=== PATIENT | female | born 1970 | race Caucasian/White ===

== ENCOUNTER 2021-02-24 13:47 | Emergency (ER) | payer OTHER ==
[~2021-02-24] VITALS: Ht 162.6 cm; Wt 99.8 kg
[2021-02-24 13:54] VITALS: BP 131/77
[2021-02-24] MEDS ORDERED: IBUPROFEN 800 MG TAB PO ONE (15:45)
== END 2021-02-24 16:07 | disposition home or self-care (01) ==
LOC: ER 13:47
DX: S52.125A Nondisplaced fracture of head of left radius, initial encounter for closed fracture (principal); W01.0XXA Fall on same level from slipping, tripping and stumbling without subsequent striking against object, initial encounter; Y93.89 Activity, other specified; Y92.89 Other specified places as the place of occurrence of the external cause; Y99.8 Other external cause status
CPT/HCPCS: 29105; 73070; 73100

== ENCOUNTER 2024-11-24 05:20 | Inpatient (IN) | payer OTHER ==
[~2024-11-24] VITALS: Ht 160 cm; Wt 106.7 kg
[2024-11-24 05:45] VITALS: PULSE 65; RESP 12; O2SAT 96
--- NOTE | 2024-11-24 06:52 | ED.PDOC ---
Musculoskeletal HPI Comments This is a 54 year old female JAMIL presenting to the ED with chief complaint of left hip injury s/p fall. Patient reports that while at work this morning, she had accidentally tripped over a concrete curb, causing her to fall onto her left hip. Patient relays that she is now unable to move her left hip with associated pain. Patient states that she had a previous left hip replacement done some time ago. Patient denies any numbness, weakness, tingling, back pain, head injury, or leg pain. Chief Complaint: Fall Injury Time Seen by MD: 06:50 Primary Care Provider: NIK Reviewed Notes: Nurses Notes, Medications, Allergies Allergies: Coded Allergies: Sulfamethoxazole w/Trimethoprim (Verified Allergy, Unknown, 11/24/24) Information Source: Patient Mode of Arrival: EMS Location: Left Extremity Location: Hip Timing: Hours Prehospital treatment: None Severity: Moderate Able to Move Extremity: No Bear Weight: No Pain: Moderate Mechanism: Spontaneous Circumstances: Fall Onset of Symptoms: After Trauma Symptoms: Pain DVT Risk Factors: NONE Last Tetanus: Unknown History of: Hip Operation Associated signs and symptoms: Hip pain Past Medical History PAST MEDICAL HISTORY: Denies Surgical History (Other): Left hip replacement ASSESSOR History: Denies all ASSESSOR Hx Family History Family History: Reviewed,noncontributory to illness Social History Smoker: Non-Smoker Alcohol: Denies ETOH Use Drugs: Denies Drug Use Lives In: Home Constitutional: denies: chills, diaphoresis, fatigue, fever, malaise, sweats, weakness, others EENTM: denies: blurred vision, double vision, ear bleeding, ear discharge, ear drainage, ear pain, ear ringing, eye pain, eye redness, hearing loss, mouth pain, mouth swelling, nasal discharge, nose bleeding, nose congestion, nose pain, photophobia, tearing, throat pain, throat swelling, voice changes, others Respiratory: denies: cough, hemoptysis, orthopnea, SOB at rest, shortness of breath, SOB with excertion, stridor, wheezing, others Cardiovascular: denies: chest pain, dizzy spells, diaphoresis, Dyspnea on exertion, edema, irregular heart beat, left arm pain, lightheadedness, palpitations, PND, syncope, others Gastrointestinal: denies: abdomen distended, abdominal pain, blood streaked bowels, constipated, diarrhea, dysphagia, difficulty swallowing, hematemesis, melena, nausea, poor appetite, poor fluid intake, rectal bleeding, rectal pain, vomiting, others Genitourinary: denies: abnormal vagina bleeding, burning, dyspareunia, dysuria, flank pain, frequency, hematuria, incontinence, pain, , vagina discharge , urgency, others Neurological: denies: dizziness, fainting, headache, left sided numbness, left sided weakness, numbness, paresthesia, pre-existing deficit, right sided numbness, right sided weakness, seizure, speech problems, tingling, tremors, weakness, others Musculoskeletal: reports: others (Left hip pain and no ROM); denies: back pain, gout, joint pain, joint swelling, muscle pain, muscle stiffness, neck pain Integumetry: denies: bruises, change in color, change in hair/nails, dryness, laceration, lesions, lumps, rash, wounds, others Allergic/Immunocompromised: denies: Difficulty Healing, Frequent Infections, Hives, Itching, others Hematologic/Lymphatic: denies: anemia, blood clots, easy bleeding, easy bruising, swollen glands, others Endocrine: denies: excessive hunger, excessive sweating, excessive thirst, excessive urination, flushing, intolerance to cold, intolerance to heat, unexplained weight gain, unexplained weight loss, others Psychiatric: denies: anxiety, bipolar disorder, depression, hopeless, panic disorder, schizophrenia, sleepless, suicidal, others All Other Systems: Reviewed and Negative Physical Exam General Appearance: No Apparent Distress, Normal HEENT: Normal ENT Inspection, Pharynx Normal, TMs Normal Neck: Full Range of Motion, Non-Tender, Normal, Normal Inspection Respiratory: Chest Non-Tender, Lungs Clear, No Accessory Muscle Use, No Respiratory Distress, Normal Breath Sounds Cardiovascular: No Edema, No JVD, No Murmur, No Gallop, Normal Peripheral Pulses, Regular Rate/Rhythm Breast Exam: Deferred Gastrointestinal: No Organomegaly, Non Tender, No Pulsatile Mass, Normal Bowel Sounds, Soft Genitalia: Deferred Pelvic: Deferred Rectal: Deferred Extremities: No calf tenderness, Normal capillary refill, Normal inspection, Normal range of motion, Non-tender, No pedal edema Musculoskeletal : Location: Left Extremity Location: Hip Apperance: Tenderness: Moderate, Other (No ROM to left hip) Neurologic: Alert, baseball sewer hand II-XII nml as Tested, No Motor Deficits, Normal Affect, Normal Mood, No Sensory Deficits Cerebellar Function: Normal Reflexes: Normal Skin: Dry, Normal Color, Warm Lymphatic: No Adenopathy Was a procedure done? Was a procedure done?: No Differential Diagnosis EXT Differential Diagnosis: Fracture, Sprain, Dislocation, Contusion, Strain X-Ray, Labs, Meds, VS Vital Signs Date Time Temp Pulse Resp B/P (MAP) Pulse Ox O2 Delivery O2 Flow Rate FiO2 11/24/24 08:26 56 12 153/66 11/24/24 07:40 98.8 56 12 153/66 (95) 98 98.8 11/24/24 07:40 56 12 98 Room Air* 0 21 11/24/24 05:45 65 12 158/77 (104) 96 11/24/24 05:45 65 12 96 Room Air* 0 21 11/24/24 05:31 98.3 80 18 138/64 (88) 98 98.3 Lab Test 11/24/24 08:03 Range/Units White Blood Count 7.3 4.4-10.8 10^3/uL Red Blood Count 5.05 4.0-5.20 10^6/uL Hemoglobin 14.5 12.2-16.2 g/dL Hematocrit 42.3 36.0-46.0 % Mean Corpuscular Volume 83.7 80.0-100.0 fL Mean Corpuscular Hemoglobin 28.8 28.0-32.0 pg Mean Corpuscular Hemoglobin Concent 34.4 32.0-36.0 g/dL Red Cell Distribution Width 13.1 11.8-14.3 % Platelet Count 249 140-450 10^3/uL Mean Platelet Volume 7.1 6.9-10.8 fL Neutrophils (%) (Auto) 73.7 37.0-80.0 % Lymphocytes (%) (Auto) 17.8 10.0-50.0 % Monocytes (%) (Auto) 5.2 0.0-12.0 % Eosinophils (%) (Auto) 2.9 0.0-7.0 % Basophils (%) (Auto) 0.4 0.0-2.0 % Neutrophils # (Auto) 5.4 1.6-8.6 10 ^3/uL Lymphocytes # (Auto) 1.3 0.4-5.4 10 ^3/uL Monocytes # (Auto) 0.4 0-1.3 10 ^3/uL Eosinophils # (Auto) 0.2 0-0.8 10 ^3/uL Basophils # (Auto) 0 0-0.2 10 ^3/uL Nucleated Red Blood Cells 0.0 % Sodium Level 142 136-145 mmol/L Potassium Level 3.8 3.5-5.1 mmol/L Chloride Level 110 H 98-107 mmol/L Carbon Dioxide Level 27 20-31 mmol/L Anion Gap 5 5-15 Blood Urea Nitrogen 15 9-23 mg/dL Creatinine 0.76 0.550-1.02 mg/dL Glomerular Filtration Rate Calc 93 >90 mL/min BUN/Creatinine Ratio 19.7 10.0-20.0 Serum Glucose 101 74-106 mg/dL Calcium Level 9.7 8.7-10.4 mg/dL Current Medications Medications (Trade) Dose Ordered Sig/Sandra Route Start Time Stop Time Status Last Admin Morphine Sulfate 4 mg ONCE ONCE IV 11/24/24 06:45 11/24/24 06:46 DC 11/24/24 08:26 Sodium Chloride 1,000 ml @ 1,000 mls/hr Q1H ONCE IV 11/24/24 06:45 11/24/24 07:44 DC 11/24/24 07:05 Ondansetron HCl (Zofran) 4 mg ONCE ONCE IV 11/24/24 06:45 11/24/24 06:46 DC 11/24/24 07:38 Time of 1ST Reevaluation: 07:49 Reevaluation 1ST: Unchanged Patient Education/Counseling: Diagnosis, Treatment Family Education/Counseling: Diagnosis, Treatment Additional Information Previous visits reviewed: N/A The following tests were ordered, and results were reviewed by me: Lt hip XR Additional Information was gathered from interviewing the following independent historians: N/A I reviewed and agreed with the following test results read by other providers: Lt hip XR I discussed treatment and results with medical personnel and: patient and Comprehensive systems review obtained and negative except for what is stated in the HPI. Departure 1 Departure Time of Disposition: 09:18 (Patient with severe left hip pain after a fall. Patient with a history of a left hip replacement. Discussed with the Orthopedics who recommended admission for pain management and further evaluation as well as a CT left hip.) Impression: Primary Impression: Left hip pain Additional Impressions: Unable to ambulate Status post total hip replacement, left Disposition: 09 ADMITTED INPATIENT Admit to: Med Surg Condition: Serious Critical Care Note Critical Care Time?: Yes Critical care comment: Intractable hip pain Authorized and Performed by: Rosie Celeste MD Total critical care time: Approximately 38 minutes Due to a high probability of clinically significant, life threatening deteriorat ion, the patient required my highest level of preparedness to intervene emergently and I personally spent this critical care time directly and personally managing the patient. This critical care time included obtaining a history; examining the patient; pulse oximetry; ordering and review of studies; arranging urgent treatment with development of a management plan; evaluation of patient's response to treatment; frequent reassessment; and, discussions with other providers. This critical care time was performed to assess and manage the high probability of imminent, life-threatening deterioration that could result in multi-organ failure. It was exclusive of separately billable procedures and treating other patients and teaching time. Please see my other sections and the rest of the note for further information on patient assessment and treatment. Stability Stability form required: No Heart Score Heart Score: Heart Score Response (Comments) Value History N/A 0 EKG N/A 0 Age N/A 0 Risk Factors N/A 0 Troponin N/A 0 Total 0 I personally scribed for ROSIE CELESTE MD ([email or web address]) on 11/24/24 at 06:52. Electronically submitted by Ki Cage ([email or web address]). ROSIE CELESTE MD Nov 24, 2024 06:52
[2024-11-24] MEDS: SODIUM CHLORIDE 0.9% 1,000 ML IV ONE (07:05)
--- NOTE | 2024-11-24 07:33 | DVH ---
PROCEDURE: Left hip radiographs. INDICATION: Left hip injury TECHNIQUE: Frontal and lateral views of the left hip were obtained. COMPARISON: None FINDINGS: There is left total hip replacement. Hardware is intact. Alignment is maintained. No acute fracture or dislocation. IMPRESSION: 1. Left hip prosthesis. No acute osseous abnormality, hardware compromise or abnormal alignment.
[2024-11-24] MEDS: ONDANSETRON HCL 4 MG/2 ML VIAL IV ONE (07:38)
[2024-11-24 07:40] VITALS: PULSE 56; RESP 12; O2SAT 98
[2024-11-24 08:17] LABS: Hematocrit 42.3 % (36.0-46.0); Hemoglobin 14.5 g/dL (12.2-16.2); Mean Corpuscular Hemoglobin 28.8 pg (28.0-32.0); Mean Corpuscular Volume 83.7 fL (80.0-100.0); Nucleated Red Blood Cells % 0.0 %
[2024-11-24 08:26] LABS: Potassium 3.8 mmol/L (3.5-5.1); Sodium 142 mmol/L (136-145)
[2024-11-24] MEDS: MORPHINE SULFATE 4 MG/ML SYR/VIAL IV ONE (08:26)
[2024-11-24 08:27] LABS: Anion Gap 5 (5-15); Calcium 9.7 mg/dL (8.7-10.4); Carbon Dioxide 27 mmol/L (20-31)
[2024-11-24 08:31] LABS: Chloride 110 mmol/L (98-107)
[2024-11-24 08:32] LABS: BUN/Creatinine Ratio 19.7 (10.0-20.0); Blood Urea Nitrogen 15 mg/dL (9-23); Glucose 101 mg/dL (74-106)
--- NOTE | 2024-11-24 08:41 | DVH ---
CLINICAL INDICATION: left leg pain TECHNIQUE: 3 radiographic views of the left knee were obtained. Comparison: None FINDINGS/IMPRESSION: There is no evidence of acute fracture or dislocation. The visualized joint space is well maintained. The alignment is anatomical. There is no radiopaque foreign body.
[2024-11-24] MEDS ORDERED: HYDROcodone-ACET 5/325MG TAB PO PRN (09:15)
[2024-11-24] MEDS ORDERED: NITROGLYCERIN 0.4 MG SL TAB SL PRN (09:15)
[2024-11-24] MEDS ORDERED: ACETAMINOPHEN 325 MG TAB PO PRN (09:15)
[2024-11-24] MEDS ORDERED: DOCUSATE SOD 100 MG CAP PO PRN (09:15)
[2024-11-24] MEDS ORDERED: MORPHINE SULFATE INJ 2 MG/ml SYRG IV PRN (09:15)
--- NOTE | 2024-11-24 09:28 | DVHHP2 ---
History of Present Illness Reason for Visit: Fall with injury History of Present Illness The patient is a 54-year-old female with past medical history of hyperlipidemia who presented to [facility] ED with complaint of left hip pain. Patient reports she accidentally tripped and fall over a concrete curb, landing onto her left hips with sustained pain injury, now unable to move her left hip, getting worse that prompted this visit. Patient states that she had history of left hip replacement. Patient was seen and evaluated in the ED, laboratory data shows WBC 7.3, platelets 249, sodium 142, potassium 3.8, BUN 15, creatinine 0.76, glucose 101, blood pressure 153/66, heart rate 56, temperature 98.8 F, O2 saturation 98% on room air. Left hip x-ray revealing hip prosthesis, no acute osseous abnormality, hardware compromise or abnormal alignment. Please see medication orders section in the computer. On my assessment, patient denied chest pain, no headache, no dizziness, no diaphoresis, no shortness of breath, no nausea, no vomiting, no fever, no chills. Patient was admitted for further evaluation and medical management. Past Medical History Hyperlipidemia Past Surgical History Left hip replacement Family History Reviewed, noncontributory to the management of this case. Past Social History The patient lives at home, denies smoking, alcohol or illicit drugs abuse. Review of Systems Constitutional: No: Fever, Chills, Sweats, Weakness, Malaise, Other Eyes: No: Pain, Vision change, Conjunctivae inflammation, Eyelid inflammation, Other, Redness ENT: No: Ear pain, Ear discharge, Nose pain, Nose discharge, Nose congestion, Mouth pain, Mouth swelling, Throat pain, Throat swelling, Other Respiratory: No: Cough, Dry, Shortness of breath, SOB with excertion, Wheezing, Hemoptysis, Pleuritic Pain, Sputum, Wheezing, Other Cardiovascular: No: Chest Pain, Palpitations, Orthopnea, Paroxysmal Noc. Dyspnea, Edema, Lt Headedness, Other Gastrointestinal: No: Nausea, Vomiting, Abdominal Pain, Diarrhea, Constipation, Melena, Hematochezia, Other Genitourinary: No Dysuria, No Frequency, No Incontinence, No Hematuria, No Retention, No Other Musculoskeletal: other (Left hip pain and no ROM.); No: neck pain, shoulder pain, arm pain, back pain, hand pain, leg pain, foot pain Skin: No: Rash, Lesions, Jaundice, Bruising, Other Neurological: No: Weakness, Numbness, Incoordination, Change in speech, Confusion, Seizures, Other Allergies: Coded Allergies: Sulfamethoxazole w/Trimethoprim (Verified Allergy, Unknown, 11/24/24) Exam Vital Signs Vital Signs Date Time Temp Pulse Resp B/P (MAP) Pulse Ox O2 Delivery O2 Flow Rate FiO2 11/24/24 08:26 56 12 153/66 11/24/24 07:40 98.8 98 98.8 11/24/24 07:40 Room Air* 0 21 General Appearance: Alert, Oriented X3, Cooperative, No acute distress HEENT: Atraumatic, PERRLA, EOMI, Mucous membr. moist/pink Respiratory: Clear to auscultation, Normal air movement Cardiovascular: Regular rate, Normal S1, Normal S2, No murmurs Abdominal: Normal bowel sounds, Soft, No tenderness, No hepatospenomegaly, No masses Extremities: No clubbing, No cyanosis, No edema, Normal pulses, Other (Left hip tenderness/pain) Skin: No rashes, No significant lesion Neuro: Normal speech, Normal tone, Sensation intact, Cranial nerves 3-12 NL, Reflexes 2+, Other (Unsteady gait) Psych/Mental Status: Mental status NL, Mood NL Labs/Xrays Labs Test 11/24/24 08:03 Range/Units White Blood Count 7.3 4.4-10.8 10^3/uL Red Blood Count 5.05 4.0-5.20 10^6/uL Hemoglobin 14.5 12.2-16.2 g/dL Hematocrit 42.3 36.0-46.0 % Mean Corpuscular Volume 83.7 80.0-100.0 fL Mean Corpuscular Hemoglobin 28.8 28.0-32.0 pg Mean Corpuscular Hemoglobin Concent 34.4 32.0-36.0 g/dL Red Cell Distribution Width 13.1 11.8-14.3 % Platelet Count 249 140-450 10^3/uL Mean Platelet Volume 7.1 6.9-10.8 fL Neutrophils (%) (Auto) 73.7 37.0-80.0 % Lymphocytes (%) (Auto) 17.8 10.0-50.0 % Monocytes (%) (Auto) 5.2 0.0-12.0 % Eosinophils (%) (Auto) 2.9 0.0-7.0 % Basophils (%) (Auto) 0.4 0.0-2.0 % Neutrophils # (Auto) 5.4 1.6-8.6 10 ^3/uL Lymphocytes # (Auto) 1.3 0.4-5.4 10 ^3/uL Monocytes # (Auto) 0.4 0-1.3 10 ^3/uL Eosinophils # (Auto) 0.2 0-0.8 10 ^3/uL Basophils # (Auto) 0 0-0.2 10 ^3/uL Nucleated Red Blood Cells 0.0 % Sodium Level 142 136-145 mmol/L Potassium Level 3.8 3.5-5.1 mmol/L Chloride Level 110 H 98-107 mmol/L Carbon Dioxide Level 27 20-31 mmol/L Anion Gap 5 5-15 Blood Urea Nitrogen 15 9-23 mg/dL Creatinine 0.76 0.550-1.02 mg/dL Glomerular Filtration Rate Calc 93 >90 mL/min BUN/Creatinine Ratio 19.7 10.0-20.0 Serum Glucose 101 74-106 mg/dL Calcium Level 9.7 8.7-10.4 mg/dL PATIENT: KAROLINE LUZ ACCT: [id number] UNIT: [id number] : 1970 LOC: ER ROOM / BED: / AGE / SEX: 54 / F ADM STATUS: REG ER SERVICE [id number] ORDERING PHYSICIAN: AMANDA BERGER MD PROCEDURE(s): LHIP - L HIP COMPLETE XRAY REASON: Left hip injury ORDER NUMBER(s): [id number], ACCESSION NUMBER(s): [id number] PROCEDURE: Left hip radiographs. INDICATION: Left hip injury TECHNIQUE: Frontal and lateral views of the left hip were obtained. COMPARISON: None FINDINGS: There is left total hip replacement. Hardware is intact. Alignment is maintained. No acute fracture or dislocation. IMPRESSION: 1. Left hip prosthesis. No acute osseous abnormality, hardware compromise or abnormal alignment. ORDERING PHYSICIAN: ROSIE COOPER MD PROCEDURE(s): LKNE3 - L KNEE 3V XRAY REASON: left leg pain ORDER NUMBER(s): [id number], ACCESSION NUMBER(s): [id number] CLINICAL INDICATION: left leg pain TECHNIQUE: 3 radiographic views of the left knee were obtained. Comparison: None FINDINGS/IMPRESSION: There is no evidence of acute fracture or dislocation. The visualized joint space is well maintained. The alignment is anatomical. There is no radiopaque foreign body. SEPSIS Sepsis Screen Date sepsis recognized/suspect: Nov 24, 2024 Time Sepsis recognized/suspect: 739 Recent Procedure: No On Antibiotic Therapy: No Respiratory Rate >20: No Heart Rate >90: No Temp<36 C (96.8 F) or >38.3 C: No SBP <90 or MAP <65 mmHG: No New Acute Mental Status Change: No Is the patient on CPAP, BIPAP,: No Physician Orders L Hip Complete Xray (11/24/24 05:58) Insert Rosebnaum Catheter QSHIFT (11/24/24 07:22) L Knee 3v Xray (11/24/24 07:58) Admit (11/24/24 09:08) Allergies (11/24/24 09:08) Code Status (11/24/24 09:08) Sodium Chloride Lock (Saline Lock Ns) (11/24/24 14:00) Oxygen Per Hour (11/24/24 09:08) Hydrocodone-Acet 5/325mg Tab ([place] 5/32 (11/24/24 09:15) Ondansetron Hcl (Zofran) (11/24/24 09:15) Docusate Sodium Capsule (Colace Capsule) (11/24/24 09:15) Fall Risk Precautions In Place QSHIFT (11/24/24 09:08) Complete Blood Count (11/25/24 04:00) Comprehensive Metabolic Panel (11/25/24 04:00) Cardiac Diet-2gna,Lofat,Lochol (11/24/24 Breakfast) Condition: Serious (11/24/24 09:08) Acetaminophen Tablet (Tylenol Tablet) (11/24/24 09:15) Maintain Bed Rest (11/24/24 09:08) Morphine Sulfate Injection (11/24/24 09:15) Sequential Compression Device (11/24/24 ) Nitroglycerin Sublingual (Ntrostat Subli (11/24/24 09:15) Morphine Sulfate Injection (11/24/24 09:15) Notify Of Changes From Base (11/24/24 09:08) Emergency Dysrhythmia Protocol (11/24/24 09:08) Oxygen By Nasal Cannula (11/24/24 09:08) Vital Signs Date Time Temp Pulse Resp B/P (MAP) Pulse Ox O2 Delivery O2 Flow Rate FiO2 11/24/24 08:26 56 12 153/66 11/24/24 07:40 98.8 56 12 153/66 (95) 98 98.8 11/24/24 07:40 56 12 98 Room Air* 0 21 11/24/24 05:45 65 12 158/77 (104) 96 11/24/24 05:45 65 12 96 Room Air* 0 21 11/24/24 05:31 98.3 80 18 138/64 (88) 98 98.3 Laboratory Tests Test 11/24/24 08:03 White Blood Count 7.3 10^3/uL (4.4-10.8) Medications Medications Dose Ordered Sig/Sandra Route Start Time Stop Time Status Last Admin Dose Admin Morphine Sulfate 4 mg ONCE ONCE IV 11/24/24 06:45 11/24/24 06:46 DC 11/24/24 08:26 4 MG Ondansetron HCl 4 mg ONCE ONCE IV 11/24/24 06:45 11/24/24 06:46 DC 11/24/24 07:38 4 MG Sodium Chloride 1,000 ml @ 1,000 mls/hr Q1H ONCE IV 11/24/24 06:45 11/24/24 07:44 DC 11/24/24 07:05 1,000 MLS/HR Assessment/Plan Assessment/Plan Fall with injury Left hip pain Plan 1. Admit to med surge unit 2. Breathing treatment 3. Pain control management 4. Management of fluids and electrolytes 5. Consultation for hospitalist 6. Diagnostic tests left hip x-ray 7. DVT prophylaxis-on SCDs 8. Repeat labs CBC, CMP in a.m. 9. Continue with current medical management 10. Treatment plan discussed with patient and RN. Patient verbalized understanding. Plan discussed with: Patient, Other (RN) My Orders Orders - EBONI ESPAÑA DNP Procedure Category Date Status Time Admit ADMIT 11/24/24 Transmitted 09:08 Allergies IVONE 11/24/24 Transmitted 09:08 Code Status CODE 11/24/24 Transmitted 09:08 Sodium Chloride Lock PHA 7/16/25 Transmitted (Saline Lock Ns) 14:00 Oxygen Per Hour RT 11/24/24 Transmitted 09:08 Hydrocodone-Acet PHA 11/24/24 Transmitted 5/325mg Tab ([place] 09:15 Ondansetron Hcl PHA 11/24/24 Transmitted (Zofran) 09:15 Docusate Sodium PHA 11/24/24 Transmitted Capsule (Colace 09:15 Fall Risk Precautions IVONE 11/24/[address] 09:08 Complete Blood Count LAB 11/25/24 Verified 04:00 Comprehensive LAB 11/25/24 Verified Metabolic Panel 04:00 Cardiac DIET 11/24/24 Transmitted Diet-2gna,Lofat,Lochol Breakfast Condition: Serious IVONE 11/24/24 Transmitted 09:08 Acetaminophen Tablet PHA 11/24/24 Transmitted (Tylenol Tablet) 09:15 Maintain Bed Rest IVONE 11/24/24 Transmitted 09:08 Morphine Sulfate PHA 11/24/24 Transmitted Injection 09:15 Sequential IVONE 11/24/24 Transmitted Compression Device Nitroglycerin PHA 11/24/24 Transmitted Sublingual (Ntrostat 09:15 Morphine Sulfate PHA 11/24/24 Transmitted Injection 09:15 Notify Md Of Changes IVONE 11/24/24 Transmitted From Base 09:08 Emergency Dysrhythmia IVONE 11/24/24 Transmitted Protocol 09:08 Oxygen By Nasal RT 11/24/24 Transmitted Cannula 09:08 Problem List: (1) Fall with injury (2) Left hip pain Date of Service: Nov 24, 2024 Billing Provider: EBONI ESPAÑA DNP Common Visit Codes: [id number] INP/OBS CARE (HIGH) EBONI ESPAÑA DNP Nov 24, 2024 09:28
--- NOTE | 2024-11-24 10:24 | DVH ---
CLINICAL INDICATION: Left hip pain, per ortho TECHNIQUE: Noncontrast CT of the left hip was performed. Sagittal and coronal reformatted images are provided. COMPARISON: Radiographs of the left hip dated 11/24/2024. CT Dose: CTDI volume is 1214.01 mGy. Dose-length product is 2.47 mGy*cm FINDINGS: There is a total hip replacement. The components are well aligned and well seated. There is streak a rtifact from the hardware which limits evaluation. There is cortical irregularity along the lateral aspect of the left greater trochanter best seen on series 601, image 50 and series 2, image 49. Other chew no evidence for acute fracture. No significant soft tissue swelling. No significant joint effus ion. IMPRESSION: 1. Subtle cortical irregularity in the lateral aspect of the greater trochanter as described above fo r which a nondisplaced fracture is not excluded. 2. Left hip replacement with intact hardware. All CT scans at this medical facility are performed using dose modulation techniques as appropriate t o a performed exam including the following: Automated exposure control was utilized; adjustment of th e MA and/or KV according to patient size; and use of iterative reconstruction technique.
[2024-11-24] MEDS: SODIUM CHLOR 0.9% PF (SALINE LOCK) 10ML VIAL/SYR IV SCH (15:40)
[2024-11-24] MEDS: ONDANSETRON HCL 4 MG/2 ML VIAL IV PRN (16:54)
[2024-11-24] MEDS: MORPHINE SULFATE INJ 2 MG/ml SYRG IV PRN (17:04)
[2024-11-24] MEDS ORDERED: SEMA2INJ3 SC (18:16)
[2024-11-24 18:45] VITALS: BP 138/82; PULSE 62; RESP 16; TEMP 98.1; O2SAT 93
[2024-11-24 20:00] VITALS: PULSE 61; RESP 20; O2SAT 94
--- NOTE | 2024-11-24 20:46 | DVHINCON2 ---
Consult Note Consult Consult Note Chief Complaint: Left hip pain after ground-level fall in a patient with prior left total hip arthroplasty. --- History of Present Illness: Ms. Linh Morocho is a 54-year-old female who presented following a ground- level fall. She has a history of left total hip arthroplasty (OTTONIEL) performed in February 2024 by an orthopedic surgeon in [place]. Following the fall, an X-ray and CT scan were performed. Imaging revealed no gross fracture or dislocation, and the alignment of the left hip prosthesis is intact with no signs of hardware loosening. Orthopedic consultation was requested for evaluation. Sge denies pain out of proportion , does complain of pain with WB left hip, No numbness/tinling or low back pain red flags reported by patient. Pain well managed on time of my interview, pt in no distress. --- Past Medical History: Left total hip arthroplasty February 2024 Past Surgical History: Left total hip arthroplasty, February 2024 --- Physical Examination: Left Hip: Tenderness to palpation over the greater trochanter Pain with passive and active range of motion of the hip Mild radiation of pain to the groin No deformity or ecchymosis No instability Grossly neurovascularly intact distally Gait: Not assessed , pain with WB Other Extremities/Systemic Exam: Within normal limits CT LEFT HIP 1. Subtle cortical irregularity in the lateral aspect of the greater trochanter . 2. Left hip replacement with intact hardware. --- Assessment: 1. Status post ground-level fall in patient with prior left total hip arthroplasty 2. Possible occult fracture of the left greater trochanter (S72.102A) 3. Stable left hip prosthesis with no evidence of hardware loosening or malalignment --- Plan: Xray and case discussed with oncall surgeon dr. centeno who recommended NON OP Treatment and followup with her current Orthopedic surgeon. Non-operative management at this time. Weight-bearing as tolerated with walker. Continue pain management per medical team. ER return precautions reviewed, including worsening pain, inability to ambulate, fever, redness, or new neurological symptoms. Discharge to home with follow-up scheduled with her original orthopedic surgeon, or with our orthopedic team within 1 week or sooner if symptoms worsen. pt agrees Plan discussed with: Patient Visit Coding Surgery Date of Service if different f: Nov 24, 2024 Billing Provider: FRED CHAPPELL PAC Surgery Visit Codes: [id number] - INP CONSULT <55 MIN FRED CHAPPELL PAC Nov 24, 2024 20:46
[2024-11-24 21:00] VITALS: BP 141/87; PULSE 61; RESP 20; TEMP 98; O2SAT 94
[2024-11-25 05:00] VITALS: BP 135/76; PULSE 60; RESP 20; TEMP 97.4; O2SAT 92
[2024-11-25 05:33] LABS: Hematocrit 44.0 % (36.0-46.0); Hemoglobin 15.2 g/dL (12.2-16.2); Mean Corpuscular Hemoglobin 29.0 pg (28.0-32.0); Mean Corpuscular Volume 83.9 fL (80.0-100.0); Nucleated Red Blood Cells % 0.1 %
[2024-11-25 05:52] LABS: Alanine Aminotransferase 25 U/L (7-40); Albumin 4.5 g/dL (3.2-4.8); Alkaline Phosphatase 83 U/L (46-116); Anion Gap 8 (5-15); BUN/Creatinine Ratio 17.1 (10.0-20.0); Bilirubin, Total 0.7 mg/dL (0.2-1.0); Blood Urea Nitrogen 14 mg/dL (9-23); Calcium 9.8 mg/dL (8.7-10.4); Carbon Dioxide 26 mmol/L (20-31); Chloride 106 mmol/L (98-107); Glucose 97 mg/dL (74-106); Potassium 4.1 mmol/L (3.5-5.1); Sodium 140 mmol/L (136-145); Total Protein 7.0 g/dL (5.7-8.2)
[2024-11-25 08:00] VITALS: PULSE 61; RESP 20; O2SAT 94
[2024-11-25 09:00] VITALS: BP 108/69; PULSE 63; RESP 16; TEMP 97.3; O2SAT 94
[2024-11-25] MEDS ORDERED: CYCL-837 PO (11:38)
[2024-11-25] MEDS ORDERED: HYDR-4902 PO (11:38)
[2024-11-25 13:00] VITALS: BP 131/77; PULSE 63; RESP 16; TEMP 97.8; O2SAT 94
== END 2024-11-25 14:30 | disposition home or self-care (01) | DRG 536 ==
LOC: EDBD 05:20 → ER 05:20 → OVERFLOW 09:08 → TELE-EAST 18:20
PROVIDERS: ADMIT Hospitalist; ATTEND Hospitalist
DX: S72.115A Nondisplaced fracture of greater trochanter of left femur, initial encounter for closed fracture (principal); M97.02XA Periprosthetic fracture around internal prosthetic left hip joint, initial encounter; E78.5 Hyperlipidemia, unspecified; Z96.642 Presence of left artificial hip joint; W01.0XXA Fall on same level from slipping, tripping and stumbling without subsequent striking against object, initial encounter; Y93.89 Activity, other specified; Y92.89 Other specified places as the place of occurrence of the external cause; Y99.8 Other external cause status; Z88.3 Allergy status to other anti-infective agents
CPT/HCPCS: 36415; 73502; 73562; 73700; 80048; 80053; 85025; 96361; 96374; 96375; 99291; G0378; J2405